=== PATIENT | male | born 1960 | race Caucasian/White ===

== ENCOUNTER 2024-05-24 07:20 | Emergency (ER) | payer MEDICARE, OTHER ==
--- NOTE | 2024-05-24 07:58 | ED Physician Documentation ---
PD HPI HEENT - Stated complaint Stated Complaint: FATIGUE,JAW/NECK PX,NUMBNESS - Chief complaint Chief Complaint: General - History obtained from History obtained from: Patient - History of Present Illness Timing - onset: Today (had onset of feeling of fatigue, lighthead ed, chest tightness radiating to neck and shoulder. [place] okay yesterday without exertional dyspnea nor chest pain. No URI symptoms per se. Concerned about UT.) Timing - duration: Hours Timing - details: Gradual onset. No: Still present Location: Throat, Other (chest) Improves: Other (rest) Associated symptoms: No: Fever, Congestion, Facial swelling, Cough Review of Systems Constitutional: reports: Fatigue. denies: Fever, Chills GI: reports: Nausea Neurologic: reports: Generalized weakness, Near syncope, Syncope PD PAST MEDICAL HISTORY - Past Medical History Cardiovascular: Hypertension, High cholesterol Respiratory: None Neuro: None Endocrine/Autoimmune: None GI: GERD : None HEENT: Other Psych: None Musculoskeletal: Chronic back pain Derm: None - Past Surgical History Past Surgical History: No Ortho: Other - Present Medications Home Medications: Ambulatory Orders Medication Instructions Recorded Confirmed Atorvastatin Calcium 40 mg PO DAILY 05/24/24 05/24/24 Lisinopril [Zestril] 20 mg PO DAILY 05/24/24 05/24/24 - Allergies Allergies/Adverse Reactions: Allergies Allergy/AdvReac Type Severity Reaction Status Date / Time Penicillins Allergy Rash Verified 05/24/24 07:28 - Social History Does the pt smoke?: No Smoking Status: Current some day smoker Does the pt drink ETOH?: Yes Does the pt have substance abuse?: No - Immunizations Immunizations are current?: Yes - POLST Patient has POLST: No PD ED PE NORMAL - Vitals Vital signs reviewed: Yes - General General: Alert and oriented X 3, No acute distress, Well developed/nourished - HEENT HEENT: Pharynx benign - Neck Neck: Supple, no meningeal sign, No adenopathy - Cardiac Cardiac: RRR, No murmur - Respiratory Respiratory: No respiratory distress, Clear bilaterally - Abdomen Abdomen: Normal bowel sounds, Soft, Non tender, Non distended - Derm Derm: Normal color, Warm and dry - Extremities Extremities: No edema, No calf tenderness / cord Results - Vitals Vitals: Oxygen O2 Source Room air - EKG (time done) 08:36 EKG releavant findings:: EKG personally interpreted by author of this note. Relevant findings are: Rate: Rate (enter#) (74) Rhythm: NSR [place]: Normal Intervals: Normal NC QRS: Normal Ischemia: Normal ST segments, ST elevation c/w repol. No: ST elevation c/w ischemia, ST depression - Labs Labs: Laboratory Tests 05/24/24 05/24/24 05/24/24 08:33 08:33 09:24 WBC 4.3 L RBC 5.01 Hgb 15.4 Hct 44.5 MCV 88.8 MCH 30.7 MCHC 34.6 RDW 12.9 Plt Count 193 MPV 9.1 Neut # (Auto) 2.7 Lymph # (Auto) 1.0 L [place] # (Auto) 0.5 Eos # (Auto) 0.1 Baso # (Auto) 0.0 Absolute Nucleated RBC 0.00 Nucleated RBC % 0.0 Sodium 134 L Potassium 4.5 Chloride 100 L Carbon Dioxide 29 Anion Gap 5.0 L BUN 21 H Creatinine 0.8 Estimated GFR (MDRD) 97 Glucose 107 H Calcium 10.0 Total Bilirubin 0.5 AST 23 ALT 25 Alkaline Phosphatase 66 Troponin I High Sens 4.6 4.4 Total Protein 6.7 Albumin 4.4 Globulin 2.3 Albumin/Globulin Ratio 1.9 Lipase 69 - Rads (name of study) chest xray Relevant Findings:: Prelim report reviewed, EMP independent interpretation of test (no acut eprocess.) PD Medical Decision Making - ED course Complexity details: reviewed results (ECG with subtle ST elevations anterior/general, but not ischemic per se. Repeat similar. Tropoins are normal. ), considered differential (onset of fatigue and dyspnea/ weakness without chest pain: need to consider ACS/UT, early viral syndrome, lytes/blood sugar, among others. PERC negative. ), d/w patient Departure - Departure Disposition: 01 Home, Self Care Clinical Impression: Chest discomfort, Ruled out for myocardial infarction Condition: Stable Record reviewed to determine appropriate education?: Yes Follow-Up: ANGEL ENGLE MD [Primary Care Provider] - Comments: Your chest x-ray does not show any obvious lung abnormalities such as pneumonia, fluid buildup, collapsed lung. Your blood test called troponin is negative so no signs of heart failure/heart attack. Your EKG shows a normal rhythm. Consideration could be for some inflammation through the chest wall or lungs related to the recent cold and cough. I would suggest perhaps ibuprofen or naproxen 2-3 times daily for the next several days or so. Follow-up if you have any increasing pattern of worse discomfort or any exertional related chest pain or shortness of breath or other concerns. See how you feel over the next few days, if you were to develop any increased cough fever chills etc. then this could be early viral inflammation or such. Essentially no signs of bad stuff at the moment and just follow-up for recheck if worsening symptoms. Forms: PCP List Discharge Date/Time: 05/24/24 10:39
[2024-05-24 08:44] LABS: BASOPHILS % (AUTO) 0.7 %; EOSINOPHILS # (AUTO) 0.1 10^3/uL (0.0-0.7); EOSINOPHILS % (AUTO) 2.1 %; HCT - HEMATOCRIT 44.5 % (42.0-52.0); HGB - HEMOGLOBIN 15.4 g/dL (14.0-18.0); LYMPHOCYTES % (AUTO) 23.9 %; MEAN CORPUSCULAR HEMOGLOBIN 30.7 pg (27.0-31.0); MEAN CORPUSCULAR HGB CONC 34.6 g/dL (32.0-36.0); MEAN CORPUSCULAR VOLUME 88.8 fL (80.0-94.0); MEAN PLATELET VOLUME 9.1 fL (7.4-11.4); MONOCYTES # (AUTO) 0.5 10^3/uL (0.0-1.0); MONOCYTES % (AUTO) 11.1 %; NEUTROPHILS # (AUTO) 2.7 10^3/uL (1.5-6.6); NEUTROPHILS % (AUTO) 61.7 %; PLT - PLATELET COUNT 193 10^3/uL (130-450); RED BLOOD COUNT 5.01 10^6/uL (4.70-6.10); RED CELL DISTRIBUTION WIDTH 12.9 % (12.0-15.0); WHITE BLOOD COUNT 4.3 x10^3/uL (4.8-10.8)
--- NOTE | 2024-05-24 08:45 | XRAY Report ---
PROCEDURE: Chest 1V INDICATIONS: Chest Pain TECHNIQUE: One view of the chest was acquired. COMPARISON: None. FINDINGS: Surgical changes and devices: None. Lungs and pleura: No pleural effusions or pneumothorax. Lungs are clear. Mediastinum: Mediastinal contours appear normal. Heart size is normal. Bones and chest wall: No suspicious bony lesions. Overlying soft tissues appear unremarkable. IMPRESSION: No acute cardiopulmonary process. Reviewed by: Mart Juares MD on 05/24/2024 8:44 AM PDT Approved by: Mart Juares MD on 05/24/2024 8:44 AM PDT Station ID: [id number]
[2024-05-24 08:59] LABS: ALBUMIN 4.4 g/dL (3.2-5.5); ALBUMIN/GLOBULIN RATIO 1.9 (1.0-2.2); BILIRUBIN,TOTAL 0.5 mg/dL (0.2-1.0); CREATININE 0.8 mg/dL (0.6-1.3); POTASSIUM 4.5 mmol/L (3.5-4.5); TOTAL PROTEIN 6.7 g/dL (6.4-8.9)
[2024-05-24 09:05] LABS: TROPONIN I HIGH SENSITIVITY 4.6 ng/L (2.3-19.7)
[2024-05-24] MEDS: IBUPROFEN 600 MG TABLET PO STA (10:20)
[2024-05-24 10:43] VITALS: BP 150/86; O2SAT 98
== END 2024-05-24 10:39 | disposition home or self-care (01) ==
LOC: ED 07:20
DX: R07.89 Other chest pain (principal); I10 Essential (primary) hypertension; E78.00 Pure hypercholesterolemia, unspecified; F17.200 Nicotine dependence, unspecified, uncomplicated; Z79.899 Other long term (current) drug therapy
CPT/HCPCS: 36415; 71045; 80053; 83690; 84484; 85025; 93005; 99284; A9270

== ENCOUNTER 2024-06-30 14:59 | Outpatient (CLI) | payer MEDICARE ==
--- NOTE | 2024-06-30 16:42 | XRAY Report ---
PROCEDURE: Hand 1-2V BL INDICATIONS: HAND ARTHRITIS TECHNIQUE: 2 views of the hand(s) acquired. COMPARISON: None. FINDINGS: Bones: No fractures or dislocations. Potential bony erosions can be seen involving the ulnar aspects of the proximal fifth metacarpals. Focal degenerative change is seen involving the first carpometaca rpal joint, with milder degenerative changes seen elsewhere. Soft tissues: No suspicious soft tissue calcifications or masses. IMPRESSION: Potential bony erosions can be seen involving the ulnar aspects of the proximal fifth metacarpals, wh ich is commonly seen in patients with rheumatoid arthritis. Underlying age-appropriate osteoarthritic degenerative changes are also seen. Reviewed by: Arun De La O MD on 06/30/2024 3:41 PM [facility] Approved by: Arun De La O MD on 06/30/2024 3:41 PM EUFEMIA Station ID: [id number]
--- NOTE | 2024-06-30 16:47 | XRAY Report ---
PROCEDURE: Hip w/Pelvis 2-3V LT INDICATIONS: LEFT SCIATICA TECHNIQUE: A weightbearing AP view of the pelvis and a weightbearing lateral view of the left hip we re acquired. COMPARISON: None. FINDINGS: Bones: No fractures or dislocations. No suspicious bony lesions. The hip joint spaces appear well-preserved. Mild subchondral sclerosis can be seen involving the acet abular roofs on both sides. Note is made of age-appropriate degenerative change of the lower lumbar spine. Soft tissues: No suspicious soft tissue calcifications or masses. IMPRESSION: Mild degenerative change can be seen by plain film. If it would be helpful for clinical management decision making, please consider a dedicated hip MRI f or further evaluation (assuming that there is no contraindication). This should be performed accordi ng to the arthrogram protocol, if there is strong clinical concern for a labral abnormality. Reviewed by: Arun De La O MD on 06/30/2024 3:46 PM EUFEMIA Approved by: Arun De La O MD on 06/30/2024 3:46 PM EUFEMIA Station ID: [id number]
== END 2024-06-30 15:00 | disposition home or self-care (01) ==
LOC: DI 14:59
PROVIDERS: ATTEND Nurse Practitioner Family
DX: M16.12 Unilateral primary osteoarthritis, left hip (principal); M47.816 Spondylosis without myelopathy or radiculopathy, lumbar region; M19.041 Primary osteoarthritis, right hand; M19.042 Primary osteoarthritis, left hand

== ENCOUNTER 2024-07-21 07:28 | Outpatient (CLI) | payer MEDICARE ==
[2024-07-21 13:08] LABS: RHEUMATOID FACTOR NEGATIVE (Negative)
--- NOTE | 2024-07-21 13:13 | MRI Report ---
PROCEDURE: Hip LT WO INDICATIONS: HIP PAIN TECHNIQUE: Noncontrast coronal T1 spin echo and STIR through the bony pelvis. Coronal and axial T2 fast spin ec ho with fat saturation, sagittal T1 spin echo, and oblique axial T2 fast spin echo with fat saturatio n through the hip. COMPARISON: Plain films dated 06/30/2024 FINDINGS: Image quality: Excellent. Bones and joints: Bone marrow of the pelvic ring and proximal femurs show normal signal throughout. No intraosseous lesions or fractures. No avascular necrosis of the femoral heads. The visualized l ower lumbar spine appears normally aligned. Reactive signal within the visualized lower lumbar and l umbosacral endplates. Tendons: The gluteus medius and minimus tendons appear intact, without associated muscle atrophy. M ild T2 signal elevation adjacent to the femoral insertion sites of the left gluteus medius and minimu s tendons. The iliopsoas tendon appears intact, without adjacent bursal fluid collections. The origi n of the hamstring tendon is intact at the ischial tuberosity. Mild T2 signal elevation within and a djacent to the hamstring tendon origin. Labrum and cartilage: The acetabular labrum appears intact in the absence of intra-articular contras t. Cartilage surface of the femoral head appears of normal thickness. The alpha angle of the femur is within normal limits at less than 55 degrees. Soft tissues: Visualized muscles demonstrate normal bulk and internal signal. The proximal sciatic neurovascular bundle appears normal adjacent to the hamstring tendons. No free pelvic fluid. Bladde r wall thickness is normal. Genitourinary structures and bowel loops appear normal where visualized. IMPRESSION: 1. Mild insertional tendinitis of the left gluteus medius and minimus tendons. 2. Mild left hamstring tendinopathy. 3. Lower lumbar and lumbosacral degenerative disc disease. This could be further assessed with MRI, i f clinically indicated. Reviewed by: Uri Galvan MD on 07/21/2024 1:12 PM PDT Approved by: Uri Galvan MD on 07/21/2024 1:12 PM PDT Station ID: [id number]
[2024-07-23 11:11] LABS: CYCLIC CITRULLINATED PEP IGG/A 2 units (0-19)
[2024-07-24 19:07] LABS: ANTINUCLEAR ANTIBODIES IFA Negative (.)
== END 2024-07-21 07:29 | disposition home or self-care (01) ==
LOC: DI 07:28
PROVIDERS: ATTEND Nurse Practitioner Family
DX: R20.0 Anesthesia of skin (principal); M76.02 Gluteal tendinitis, left hip; M67.854 Other specified disorders of tendon, left hip; M51.36 Other intervertebral disc degeneration, lumbar region; M51.37 Other intervertebral disc degeneration, lumbosacral region; M20.001 Unspecified deformity of right finger(s); M19.049 Primary osteoarthritis, unspecified hand; R22.33 Localized swelling, mass and lump, upper limb, bilateral
CPT/HCPCS: 36415; 85651; 86038; 86140; 86200; 86430

== ENCOUNTER 2024-07-26 07:16 | Outpatient (CLI) | payer MEDICARE ==
--- NOTE | 2024-07-26 08:20 | CT Report ---
PROCEDURE: Head WO INDICATIONS: DIZZINESS, MEMORY LOSS TECHNIQUE: Noncontrast 4.5 mm thick angled axial sections acquired from the foramen magnum to the vertex. For r adiation dose reduction, the following was used: automated exposure control, adjustment of mA and/or kV according to patient size. COMPARISON: None. FINDINGS: Image quality: Excellent. CSF spaces: Basal cisterns are patent. No extra-axial fluid collections. Ventricles are normal in size and shape. Brain: No midline shift. No intracranial masses or hemorrhage. Isaac-white matter interface is with in normal limits. Skull and face: Calvarium and visualized facial bones are intact, without suspicious lesions. Sinuses: Mucosal thickening at the right maxillary sinus and paranasal sinuses. Mastoids are clear. IMPRESSION: No acute intracranial pathology. Reviewed by: Michael Castro MD on 07/26/2024 8:19 AM PDT Approved by: Michael Castro MD on 07/26/2024 8:19 AM PDT Station ID: [id number]
== END 2024-07-26 07:17 | disposition home or self-care (01) ==
LOC: DI 07:16
PROVIDERS: ATTEND Nurse Practitioner Family
DX: R42 Dizziness and giddiness (principal); R41.3 Other amnesia